=== PATIENT | female | born 1990 | race Caucasian/White ===

== ENCOUNTER 2016-09-26 14:08 | Emergency (ER) | payer BC, OTHER ==
[~2016-09-26] VITALS: Ht 162.6 cm; Wt 58.1 kg
--- NOTE | 2016-09-26 15:14 | RAD ---
Obstetrical ultrasound, 09/26/2016: History: Vaginal bleeding Transabdominal scans were obtained. The uterus is mildly enlarged and contains a single gestational sac. The gestational sac contains a pole demonstrating a crown-rump length of 2.6 cm. This suggests a gestational age of 9 weeks and 3 days yielding a sonographic EDC of 04/28/2017. activity and cardiac motion are present. The heart rate is 175 bpm. There is no evidence of subchorionic hemorrhage. The maternal left ovary is unremarkable. The right ovary was not visualized. No free fluid is evident in the pelvis. IMPRESSION: Single viable intrauterine fetus of 9-10 weeks gestational age.
[2016-09-26 15:33] LABS: BASO % 0 % (0-3); EOS % 3 % (0-3); LYMPH # 2.4 x10^3/uL (1.0-4.8); LYMPH % 28 % (24-48); MEAN CORPUSCULAR HEMOGLOBIN 31 pg (25-35); MEAN CORPUSCULAR HGB CONC 35 g/dL (31-37); MEAN CORPUSCULAR VOLUME 91 fL (79-100); MONO % 8 % (0-9); NEUT % 61 % (31-73); PLATELET COUNT 258 x10^3/uL (140-400); RED BLOOD COUNT 3.86 x10^6/uL (3.50-5.40); RED CELL DISTRIBUTION WIDTH 13.1 % (11.5-14.5); WHITE BLOOD COUNT 8.5 x10^3/uL (4.0-11.0)
[2016-09-26 15:46] LABS: CALCIUM 8.7 mg/dL (8.5-10.1); CREATININE 0.4 mg/dL (0.6-1.0); GFR 190.1; POTASSIUM 3.4 mmol/L (3.5-5.1)
--- NOTE | 2016-09-26 16:01 | PHYS DOC ---
Past Medical History Past Medical History: Asthma Past Surgical History: No Surgical History Additional Information: PACK A DAY Alcohol Use: None Drug Use: None Adult General Chief Complaint Chief Complaint: VAGINAL BLEEDING HPI HPI -year-old female who is 1 presenting at approximately 7-8 weeks gestation as demonstrated on a ultrasound taken last week by her OB doctor. She now states she's had some dark discharge from the vagina she is concerned could be blood today with some cramping. She states she has been stressed because her boyfriend recently treated on her. She denies any recent drugs or alcohol use but she does states she is smoking cigarettes with this . As any dysuria type symptoms. Upon my initial assessment, patient is nontoxic and afebrile in appearance. She denies any dizziness or lightheadedness. Review of Systems Review of Systems Constitutional: Denies fever or chills [] Eyes: Denies change in visual acuity, redness, or eye pain [] HENT: Denies nasal congestion or sore throat [] Respiratory: Denies cough or shortness of breath [] Cardiovascular: No additional information not addressed in HPI [] GI: Denies abdominal pain, nausea, vomiting, bloody stools or diarrhea [] : Denies dysuria or hematuria [] Musculoskeletal: Denies back pain or joint pain [] Integument: Denies rash or skin lesions [] Neurologic: Denies headache, focal weakness or sensory changes [] Endocrine: Denies polyuria or polydipsia [] Physical Exam Physical Exam Constitutional: Well developed, well nourished, no acute distress, non-toxic appearance. [] HENT: Normocephalic, atraumatic, bilateral external ears normal, oropharynx moist, no oral exudates, nose normal. [] Eyes: PERRLA, EOMI, conjunctiva normal, no discharge. [] Neck: Normal range of motion, no tenderness, supple, no stridor. [] Cardiovascular:Heart rate regular rhythm, no murmur [] Lungs & Thorax: Bilateral breath sounds clear to auscultation [] Abdomen: Bowel sounds normal, soft, no tenderness, no masses, no pulsatile masses. [] : Speculum exam reveals a closed cervical os with some dark discharge noted in the vault. She had no cervical or adnexal pain Skin: Warm, dry, no erythema, no rash. [] Back: No tenderness, no CVA tenderness. [] Extremities: No tenderness, no cyanosis, no clubbing, ROM intact, no edema. [] Neurologic: Alert and oriented X 3, normal motor function, normal sensory function, no focal deficits noted. [] Psychologic: Affect normal, judgement normal, mood normal. [] Current Patient Data Vital Signs Vital Signs Date Time Temp Pulse Resp B/P (MAP) Pulse Ox O2 Delivery O2 Flow Rate FiO2 09/26/16 14:25 98.3 82 16 109/59 (76) 97 Room Air 98.3 Lab Values Laboratory Tests Test 09/26/16 15:20 White Blood Count 8.5 x10^3/uL (4.0-11.0) Red Blood Count 3.86 x10^6/uL (3.50-5.40) Hemoglobin 12.0 g/dL (12.0-15.5) Hematocrit 35.0 % (36.0-47.0) L Mean Corpuscular Volume 91 fL (79-100) Mean Corpuscular Hemoglobin 31 pg (25-35) Mean Corpuscular Hemoglobin Concent 35 g/dL (31-37) Red Cell Distribution Width 13.1 % (11.5-14.5) Platelet Count 258 x10^3/uL (140-400) Neutrophils (%) (Auto) 61 % (31-73) Lymphocytes (%) (Auto) 28 % (24-48) Monocytes (%) (Auto) 8 % (0-9) Eosinophils (%) (Auto) 3 % (0-3) Basophils (%) (Auto) 0 % (0-3) Neutrophils # (Auto) 5.2 x10^3uL (1.8-7.7) Lymphocytes # (Auto) 2.4 x10^3/uL (1.0-4.8) Monocytes # (Auto) 0.7 x10^3/uL (0.0-1.1) Eosinophils # (Auto) 0.2 x10^3/uL (0.0-0.7) Basophils # (Auto) 0.0 x10^3/uL (0.0-0.2) Sodium Level 138 mmol/L (136-145) Potassium Level 3.4 mmol/L (3.5-5.1) L Chloride Level 102 mmol/L (98-107) Carbon Dioxide Level 25 mmol/L (21-32) Anion Gap 11 (6-14) Blood Urea Nitrogen 10 mg/dL (7-20) Creatinine 0.4 mg/dL (0.6-1.0) L Estimated GFR (Cockcroft-Gault) 190.1 Glucose Level 77 mg/dL (70-99) Calcium Level 8.7 mg/dL (8.5-10.1) Laboratory Tests 09/26/16 15:20 Laboratory Tests 09/26/16 15:20 EKG EKG [] Radiology/Procedures Radiology/Procedures Obstetrical ultrasound, 09/26/2016: History: Vaginal bleeding Transabdominal scans were obtained. The uterus is mildly enlarged and contains a single gestational sac. The gestational sac contains a pole demonstrating a crown-rump length of 2.6 cm. This suggests a gestational age of 9 weeks and 3 days yielding a sonographic EDC of 04/28/2017. activity and cardiac motion are present. The heart rate is 175 bpm. There is no evidence of subchorionic hemorrhage. The maternal left ovary is unremarkable. The right ovary was not visualized. No free fluid is evident in the pelvis. IMPRESSION: Single viable intrauterine fetus of 9-10 weeks gestational age. Course & Med Decision Making Course & Med Decision Making Pertinent Labs and Imaging studies reviewed. (See chart for details) Her bloodwork was unremarkable. Her ultrasound revealed a viable IUP at approximately 9-10 weeks gestation. Pelvic exam revealed a closed cervical os with some scant dark discharge noted. Her blood type is confirmed to be O-. A dose of prophylactic program was given. She'll be discharged with strict instruction to follow closely with her OB doctor in the next several days for repeat lab draw. Beta serum quantitative value for the is still pending at this time. Dragon Disclaimer Dragon Disclaimer This electronic medical record was generated, in whole or in part, using a voice recognition dictation system. Departure Departure Impression: Primary Impression: Threatened Disposition: 01 HOME, SELF-CARE Admitting Physician: Other Condition: STABLE Patient Instructions: Threatened Miscarriage, [id number] Additional Instructions: Please follow up with your OB doctor in the next 2-3 days for your recent vaginal bleeding and . Return to the ER if you develop any worsening of your symptoms such as worsening bleeding or pain. SEEMA RAMAN DO September 26, 2016 16:01
[2016-09-26 16:18] VITALS: BP 99/64
== END 2016-09-26 16:19 | disposition home or self-care (01) ==
LOC: ER 16:00
DX: O20.0 Threatened abortion (principal); J45.909 Unspecified asthma, uncomplicated; O99.331 Smoking (tobacco) complicating pregnancy, first trimester; F17.210 Nicotine dependence, cigarettes, uncomplicated; Z3A.09 9 weeks gestation of pregnancy
CPT/HCPCS: 36415; 76801; 80048; 84702; 85027; 86850; 86900; 86901; 99285; J2791